=== PATIENT | female | born 1965 | race African-American/Black ===

== ENCOUNTER 2021-10-13 14:44 | Emergency (ER) | payer OTHER ==
[~2021-10-13] VITALS: Ht 170.2 cm; Wt 99.8 kg
[~2021-10-13 14:44] MED LIST: CARISOPRODOL 3350 MG PO; IBUPROFEN 800800 M1 PO; NAPROSYN500 MG PO; PREDNISONE 5 MG5 M1 PO
[2021-10-13 15:01] VITALS: BP 127/80
[2021-10-13] MEDS ORDERED: TESSALON PERLE100 MG PO ×2 (17:02→17:08)
[2021-10-13] MEDS ORDERED: PROAIR HFA8.5 GM INH ×2 (17:02→17:08)
[2021-10-13] MEDS ORDERED: ZPAK PO ×2 (17:02→17:08)
--- NOTE | 2021-10-13 20:21 | NUR ---
ATTEMPTED TO CALL PT RE COIVD + RESULT. LEFT MESSAGE AT [phone].
== END 2021-10-13 17:19 | disposition home or self-care (01) ==
LOC: ER 14:44
PROVIDERS: Student in an Organized Health Care Education/Training Program
DX: U07.1 COVID-19 (principal); J12.82 Pneumonia due to coronavirus disease 2019; E11.9 Type 2 diabetes mellitus without complications; Z90.710 Acquired absence of both cervix and uterus

== ENCOUNTER 2021-10-18 11:13 | Inpatient (IN) | payer OTHER ==
[~2021-10-18] VITALS: Ht 170.2 cm; Wt 95.3 kg
[2021-10-18 11:13] VITALS: BP 149/85
[~2021-10-18 11:13] MED LIST changes: +PROAIR HFA8.5 GM INH; +TESSALON PERLE100 MG PO; +ZPAK PO
[2021-10-18] MEDS ORDERED: METFORMIN HCL500 M3 PO (11:27)
[2021-10-18 11:51] LABS: ABSOLUTE NEUTROPHILS 5.7 thou/uL (1.4-8.2); EOSINOPHILS 0.2 % (0.0-3.0); HEMATOCRIT 48.7 % (37.0-47.0); HEMOGLOBIN 15.4 gm/dL (12.0-15.0); LYMPHOCYTES 7.7 % (24.0-44.0); MCH 21.5 pg (26.0-34.0); MCHC 31.6 g/dL (28.0-37.0); MCV 68.1 fL (80.0-100.0); MONOCYTES 9.2 % (1.0-8.0); PLATELET COUNT 314 thou/uL (150-400); POLYS 81.9 % (36.0-66.0); RDW 14.5 % (10.5-14.5)
[2021-10-18 11:52] LABS: RBC 7.14 mil/uL (4.20-5.00)
[2021-10-18 12:21] LABS: ALBUMIN 2.6 g/dL (3.4-5.0); CREATININE 1.1 mg/dL (0.6-1.0); POTASSIUM 3.4 mmol/L (3.5-5.1); TOTAL BILIRUBIN 0.6 mg/dL (0.2-1.0); TOTAL PROTEIN 8.5 g/dL (6.4-8.2)
[2021-10-18 12:54] LABS: ANISOCYTOSIS SLIGHT; BURR CELLS FEW; MICROCYTES 1+; POIKILOCYTOSIS SLIGHT
[2021-10-18 14:00] LABS: HCO3 14.7 mmol/L (22.0-26.0); pH 7.395 (7.360-7.450); sO2 94.8 % (92.0-98.0)
[2021-10-18 14:01] LABS: PCO2 24.6 mmHg (35.0-45.0)
--- NOTE | 2021-10-18 14:01 | EKG ---
[address] [address] ELECTROCARDIOGRAM REPORT Name: JACQUI SEN Room #: [facility]#: [id number] Admission: 10/18/21 Attend Phys: Discharge: Date of : 63 Report #: [id number] [facility] ED Test Date: 2021-10-18 Test Time: 11:26:09 Pat Name: JACQUI SEN Department: Room: Gender: F Napper Runner: RAJEEV : 1965 Requested By: Vita Russo Order Number: [id number] MD: Minh Borden Measurements Intervals [place] Rate: 133 P: 57 NE: 81 QRS: 14 QRSD: 84 T: -75 QT: 298 QTc: 444 Interpretive Statements Sinus tachycardia Probable left atrial enlargement Borderline repolarization abnormality Compared to ECG 02/25/2016 11:47:20 Sinus rhythm no longer present T-wave abnormality no longer present Electronically Signed On 10-18-2021 14:01:41 RENAL CASE MANAGER by Minh Borden [email or web address] <ELECTRONICALLY SIGNED> By: Minh Borden MD, [facility] 10/18/21 1401 1126 [id number] Minh Borden MD, FACC /EPI
[2021-10-19 08:01] LABS: BASOPHILS 0.4 % (0.0-2.0); EOSINOPHILS 0.3 % (0.0-3.0); HEMOGLOBIN 14.9 gm/dL (12.0-15.0); LYMPHOCYTES 10.3 % (24.0-44.0); MCH 21.8 pg (26.0-34.0); MCHC 32.4 g/dL (28.0-37.0); MCV 67.2 fL (80.0-100.0); MONOCYTES 8.8 % (1.0-8.0); POLYS 80.2 % (36.0-66.0); RBC 6.84 mil/uL (4.20-5.00); RDW 14.6 % (10.5-14.5); WBC 7.5 thou/uL (4.0-11.0)
[2021-10-19 08:47] LABS: ALBUMIN 2.6 g/dL (3.4-5.0); CALCIUM 10.2 mg/dL (8.5-10.1); PHOSPHORUS 2.9 mg/dL (2.5-4.9); POTASSIUM 3.1 mmol/L (3.5-5.1); TOTAL BILIRUBIN 0.4 mg/dL (0.2-1.0); TOTAL PROTEIN 8.3 g/dL (6.4-8.2)
[2021-10-19 09:28] LABS: INR 1.11
--- NOTE | 2021-10-19 11:16 | NUR ---
SPOKE TO DR. PABLO AND PATIENT DOWNGRADED TO MED SURG STATUS.
[2021-10-19 13:31] LABS: PLATELET COUNT 288 thou/uL (150-400)
[2021-10-19 14:34] VITALS: BP 141/72
--- NOTE | 2021-10-19 21:24 | HC ---
[facility] [place] [address] CONSULTATION Name: JACQUI SEN Room #: 170-12 ADM IN .R.#: [id number] Admission: 10/18/21 Attend Phys: Lyndsey Lazcano Discharge: Date of : 63 Report #: [id number] THIS REPORT FOR: cc: FAM - No family physician/PCP FAM - No family physician/PCP Kwame De León MD ~ DATE OF SERVICE: 10/18/2021 INFECTIOUS DISEASES CONSULTATION REASON FOR CONSULTATION: I was asked to evaluate concerning COVID-19 pneumonia. HISTORY OF PRESENT ILLNESS: The patient is a 56-year-old with underlying history of diabetes, unvaccinated for COVID-19, presents with 2-week history of headache, cough, congestion, shortness of breath, low-grade fever, myalgias, and arthralgias. Minimal GI discomfort. Blood sugars have been high, treated with a Z-Edy and Tessalon Perles prior to her admission. Presents now with hypoxia, now on high flow oxygen. CT scan showed no evidence of pulmonary embolus. REVIEW OF SYSTEMS: A 14-point review of system was negative other than what is described above. No history of previous pneumonia, tuberculosis, HIV, or hepatitis. PAST MEDICAL HISTORY: 1. Hysterectomy 2. Diabetes. FAMILY HISTORY: Hypertension. SOCIAL HISTORY: Nonsmoker. No significant alcohol intake. Works for the school district. ALLERGIES: None known. MEDICATIONS: As noted on her MAR. PHYSICAL EXAMINATION: GENERAL: She was afebrile and hemodynamically stable. Alert and cooperative on high flow oxygen per nasal cannula. SKIN: Without rash or decubitus. No palpable adenopathy. She was of normal weight. HEENT: Eyes without scleral icterus. Mouth without mucositis. NECK: Supple. LUNGS: Coarse breath sounds posteriorly. HEART: Regular, without murmur, gallop or rub. ABDOMEN: Soft and nontender with no hepatosplenomegaly or mass. [facility] [address] [place] [address] CONSULTATION Name: JACQUI SEN Room #: [address] [place] [address] [place] [facility]#: [id number] Admission: 10/18/21 Attend Phys: Lyndsey Lazcano Discharge: Date of : 63 Report #: [id number] GENITORECTAL: Not performed. SPINE: Nontender. No CVA tenderness. EXTREMITIES: Without clubbing, cyanosis, or edema. NEUROLOGIC: Cranial nerves intact. Strength in the upper and lower extremities was symmetric and within normal limits. PSYCHIATRIC: Mood without anxiety. LABORATORY DATA: Reviewed. MICROBIOLOGY: Reviewed. IMAGING: Chest x-ray reviewed. CT scan of the chest reviewed. IMPRESSION: 1. COVID-19 pneumonia due to SARS-CoV-2. 2. Respiratory failure. 3. Underlying diabetes. RECOMMENDATION: We will continue with antiviral and anti-inflammatory program. Due to her high flow oxygen needs, we will add IL-6 inhibitor. Risks and benefit were discussed with the patient, who agreed with plan of care. We will continue with antibiotics pending culture results. Check serial laboratory studies and chest x-ray. The patient will be maintained in [facility] isolation unit for cardiopulmonary monitoring. <ELECTRONICALLY SIGNED> By: Kwame De León MD 10/19/214 [id number] Kwame De León MD /nt
[2021-10-19 21:55] VITALS: BP 121/78
[2021-10-20 06:31] LABS: ABSOLUTE NEUTROPHILS 7.3 thou/uL (1.4-8.2); BASOPHILS 0.4 % (0.0-2.0); EOSINOPHILS 0.3 % (0.0-3.0); HEMATOCRIT 48.2 % (37.0-47.0); HEMOGLOBIN 15.5 gm/dL (12.0-15.0); LYMPHOCYTES 8.1 % (24.0-44.0); MCH 21.7 pg (26.0-34.0); MCHC 32.2 g/dL (28.0-37.0); MCV 67.3 fL (80.0-100.0); MONOCYTES 6.7 % (1.0-8.0); PLATELET COUNT 308 thou/uL (150-400); POLYS 84.5 % (36.0-66.0); RDW 14.2 % (10.5-14.5); WBC 8.7 thou/uL (4.0-11.0)
[2021-10-20 06:39] LABS: RBC 7.16 mil/uL (4.20-5.00)
[2021-10-20 06:48] LABS: CALCIUM 10.5 mg/dL (8.5-10.1); POTASSIUM 3.1 mmol/L (3.5-5.1)
[2021-10-20 06:54] LABS: ALBUMIN 2.8 g/dL (3.4-5.0); DIRECT BILIRUBIN 0.1 mg/dL (<0.1-0.2); PHOSPHORUS 2.8 mg/dL (2.5-4.9); TOTAL BILIRUBIN 0.5 mg/dL (0.2-1.0); TOTAL PROTEIN 8.5 g/dL (6.4-8.2)
[2021-10-20 07:12] LABS: HIV ANTIBODY Non Reactive (Non Reactive)
--- NOTE | 2021-10-20 07:42 | EKG ---
[address] [place] [address] ELECTROCARDIOGRAM REPORT Name: JACQUI SEN Room #: 170- ADM IN M.R.#: [id number] Admission: 10/18/21 Attend Phys: Lyndsey Lazcano Discharge: Date of : 63 Report #: [id number] [facility] ED Test Date: 2021-10-19 Test Time: 12:38:17 Pat Name: JACQUI SEN Department: Room: 170 12 Gender: F Group Controller: HANH : 1965 Requested By: Lyndsey Lazcano Order Number: [id number] MD: Minh Borden Measurements Intervals [place] Rate: 117 P: 110 [place]: 112 QRS: 171 QRSD: 81 T: QT: 447 QTc: 624 Interpretive Statements Right and left arm electrode reversal, interpretation assumes no reversal Sinus tachycardia Probable left atrial enlargement Lateral leads are also involved Prolonged QT interval Compared to ECG 10/18/2021 11:26:09 Prolonged QT interval now present Electronically Signed On 10-20-2021 7:42:09 COLOR MAKER DYER by Minh Borden [email or web address] <ELECTRONICALLY SIGNED> By: Minh Borden MD, [facility] 10/20/21 0742 1238 1238 Minh Borden MD, [facility] /EPI
[2021-10-20 17:40] VITALS: BP 139/78
[2021-10-20 18:36] VITALS: BP 131/82
--- NOTE | 2021-10-20 19:22 | NUR ---
PATIENT ADMIT TO UNIT AT 1815 FROM ER. A/O X4. ON OPTIFLOW 40L/70%. VSS. WILL KEEP MONIOR.
[2021-10-20 19:45] VITALS: BP 128/79
--- NOTE | 2021-10-21 04:17 | NUR ---
ASSUMED CARE OF PT AROUND 1900. VVS. PT HAS REMAINED MODERATELY INDEPENDENT AND IS ABLE TO REPOSITION SELF IN BED WITHOUT CONCERN. PT HAS REMAINED ON OPTI FLOW SATING 95% AND ABOVE. PT ENDORCES GENERALIZED BODY ACHES AND A COUGH BU NO OTHER CONCERNS. VVS. NO ACUTE MEDICAL EVENTS. WILL CONT. TO MONITOR AND FOLLOW PLAN OF CARE PT IS WILLING
[2021-10-21 05:00] VITALS: BP 112/74
[2021-10-21 08:09] LABS: ABSOLUTE NEUTROPHILS 8.2 thou/uL (1.4-8.2); BASOPHILS 0.1 % (0.0-2.0); EOSINOPHILS 0.4 % (0.0-3.0); HEMATOCRIT 46.3 % (37.0-47.0); HEMOGLOBIN 14.8 gm/dL (12.0-15.0); LYMPHOCYTES 7.7 % (24.0-44.0); MCH 21.5 pg (26.0-34.0); MCHC 31.9 g/dL (28.0-37.0); MCV 67.3 fL (80.0-100.0); MONOCYTES 8.7 % (1.0-8.0); POLYS 83.1 % (36.0-66.0); RBC 6.88 mil/uL (4.20-5.00); RDW 14.4 % (10.5-14.5); WBC 9.9 thou/uL (4.0-11.0)
[2021-10-21 08:18] VITALS: BP 111/72
[2021-10-21 08:23] LABS: ALBUMIN 2.7 g/dL (3.4-5.0); CALCIUM 10.7 mg/dL (8.5-10.1); CREATININE 0.8 mg/dL (0.6-1.0); DIRECT BILIRUBIN 0.1 mg/dL (<0.1-0.2); PHOSPHORUS 2.4 mg/dL (2.5-4.9); TOTAL BILIRUBIN 0.4 mg/dL (0.2-1.0); TOTAL PROTEIN 7.8 g/dL (6.4-8.2)
[2021-10-21 08:28] LABS: POTASSIUM 2.6 mmol/L (3.5-5.1)
[2021-10-21 10:04] LABS: PLATELET COUNT 306 thou/uL (150-400)
[2021-10-21 10:05] LABS: ANISOCYTOSIS 1+; MICROCYTES 2+; PLATELET ESTIMATE NORMAL
[2021-10-21 16:43] VITALS: BP 126/54
--- NOTE | 2021-10-21 16:44 | NUR ---
ASSUMED PT CARE THIS AM. PT IS ALERT & ORIENTED X4. PT HAS IV SITE ON RAC SALINE LOCKED. INFORMED HOSPITALIST ABOUT CRITICAL K WAS LOW THIS AM AND INFUSED KCL. PT IS ACCUCHECK ACHS. PT HAS PUREWICK EXTERNAL CATH IN PLACE. PT TOLERATED DIET AND MEDICATION WELL. WILL CONTINUE TO MONITOR PT. FOLLOW POC.
[2021-10-21 20:00] VITALS: BP 133/58
[2021-10-22 04:38] VITALS: BP 119/68
[2021-10-22 05:04] LABS: HEMATOCRIT 43.4 % (37.0-47.0); HEMOGLOBIN 13.8 gm/dL (12.0-15.0); MCH 21.5 pg (26.0-34.0); MCHC 31.8 g/dL (28.0-37.0); MCV 67.5 fL (80.0-100.0); RBC 6.43 mil/uL (4.20-5.00); RDW 14.2 % (10.5-14.5); WBC 11.5 thou/uL (4.0-11.0)
[2021-10-22 05:25] LABS: ALBUMIN 2.6 g/dL (3.4-5.0); CALCIUM 9.8 mg/dL (8.5-10.1); CREATININE 0.8 mg/dL (0.6-1.0); DIRECT BILIRUBIN 0.1 mg/dL (<0.1-0.2); PHOSPHORUS 2.9 mg/dL (2.6-4.7); TOTAL BILIRUBIN 0.4 mg/dL (0.2-1.0)
[2021-10-22 05:29] LABS: POTASSIUM 2.6 mmol/L (3.5-5.1)
--- NOTE | 2021-10-22 05:34 | NUR ---
[place] FROM LAB CALLED CRITICAL K+ OF 2.6. SPOKE TO SUPERVISOR CONCRETE STONE FABRICATING AND RECEIVED ORDERS FOR REPLACEMENT 40MG PO AND 20MG IVPB.
[2021-10-22 06:51] VITALS: BP 114/67
--- NOTE | 2021-10-22 06:56 | NUR ---
ASSUMED CARE AT 1900, PT LAYING COMFORTABLY IN BED, REPORTS NO PAIN OR DISCOMFORT, COMPLIANT TO TX, NO ADVERSE REACTION NOTED, LOW POTASSIUM INDICATED, NEW ORDER IN PLACE, SLEPT THROUGHTHE NIGHT, PT NOTIFIED, CALL LIGHT WITHIN REACH WILL CONTINUE TO MINITOR.
[2021-10-22 07:11] LABS: ABSOLUTE NEUTROPHILS 8.7 thou/uL (1.4-8.2); HYPOCHROMASIA 2+
[2021-10-22 07:12] LABS: ANISOCYTOSIS 1+; MICROCYTES 2+; POLYCHROMASIA 1+
[2021-10-22 07:16] LABS: PLATELET COUNT 340 thou/uL (150-400)
[2021-10-22 15:05] VITALS: BP 100/68
--- NOTE | 2021-10-22 18:31 | NUR ---
RN ASSUMED PT'S CARE AT 0700AM, PT IS A&OX4, PT IS OFF OPTIFLOW AND PT IS ON O2 6L/MIN/NC, PT'S O2SAT STAY AT 93-98% PT'S VS ARE STABLE AT DAY SHIFT, PT GETS UP TO CHAIR WITH ASSIST, PT DENIES PAIN AND SOB BY THIS TIME.
[2021-10-22 19:08] VITALS: BP 104/67
[2021-10-23 03:47] VITALS: BP 108/73
[2021-10-23 06:54] LABS: ABSOLUTE NEUTROPHILS 8.5 thou/uL (1.4-8.2); BASOPHILS 0.4 % (0.0-2.0); EOSINOPHILS 0.7 % (0.0-3.0); HEMOGLOBIN 13.5 gm/dL (12.0-15.0); LYMPHOCYTES 18.7 % (24.0-44.0); MCH 21.3 pg (26.0-34.0); MCHC 31.5 g/dL (28.0-37.0); MCV 67.5 fL (80.0-100.0); PLATELET COUNT 321 thou/uL (150-400); POLYS 70.2 % (36.0-66.0); RBC 6.37 mil/uL (4.20-5.00); RDW 14.3 % (10.5-14.5); WBC 12.1 thou/uL (4.0-11.0)
[2021-10-23 07:15] LABS: ALBUMIN 2.7 g/dL (3.4-5.0); CALCIUM 9.6 mg/dL (8.5-10.1); CREATININE 0.7 mg/dL (0.6-1.0); DIRECT BILIRUBIN 0.1 mg/dL (<0.1-0.2); PHOSPHORUS 3.5 mg/dL (2.6-4.7); TOTAL BILIRUBIN 0.4 mg/dL (0.2-1.0)
[2021-10-23 07:20] LABS: POTASSIUM 2.7 mmol/L (3.5-5.1)
[2021-10-23 07:28] VITALS: BP 143/89
--- NOTE | 2021-10-23 07:47 | NUR ---
Up in the chair till HS then back to bed. She stated she slept well during the night. O2 at 6L at beginning of shift the titrated down to 5L. Maintaining O2 sat in the mid 90's. Denies being short of breath with exertion. Making some progress towards care plan goals.
[2021-10-23 08:50] LABS: HYPOCHROMASIA 1+; MICROCYTES 1+
[2021-10-23 15:18] VITALS: BP 112/72
--- NOTE | 2021-10-23 16:48 | NUR ---
RN ASSUMED PT'S CARE AT 0700AM, PT IS A&OX4, PT IS ON O2 5L/MIN/NC, PT'S VS AND O2SAT ARE STABLE BY THIS TIME, PT GETS UP TO CHAIR WITHOUT ASSIST, BUT PT STILL HAS SOME COUGHING, PT DENIES SOB WITH ACTIVITIES, PT DENIES PAIN BY THIS TIME.
[2021-10-23 19:46] VITALS: BP 112/62
--- NOTE | 2021-10-24 00:33 | NUR ---
PT PROGRESSING TOWARDS D/C GOALS. VSS AFEBRILE SATS 98% ON 5LNC. DENIED PAIN OR SOA. HS SNACK GIVEN AFTER INSULIN GIVEN PER PT REQUEST. WILL CONTINUE TO MONITOR PT FOR CHANGES.
[2021-10-24 02:58] VITALS: BP 124/80
[2021-10-24 05:33] LABS: ABSOLUTE NEUTROPHILS 9.9 thou/uL (1.4-8.2); BASOPHILS 0.6 % (0.0-2.0); EOSINOPHILS 0.5 % (0.0-3.0); HEMATOCRIT 42.5 % (37.0-47.0); HEMOGLOBIN 13.5 gm/dL (12.0-15.0); LYMPHOCYTES 16.6 % (24.0-44.0); MCH 21.5 pg (26.0-34.0); MCHC 31.8 g/dL (28.0-37.0); MCV 67.6 fL (80.0-100.0); MONOCYTES 7.6 % (1.0-8.0); PLATELET COUNT 330 thou/uL (150-400); POLYS 74.7 % (36.0-66.0); RBC 6.29 mil/uL (4.20-5.00); RDW 14.3 % (10.5-14.5); WBC 13.2 thou/uL (4.0-11.0)
[2021-10-24 06:01] LABS: ALBUMIN 2.7 g/dL (3.4-5.0); CALCIUM 9.6 mg/dL (8.5-10.1); CREATININE 0.8 mg/dL (0.6-1.0); DIRECT BILIRUBIN 0.1 mg/dL (<0.1-0.2); MAGNESIUM 1.6 mg/dL (1.8-2.4); PHOSPHORUS 3.2 mg/dL (2.6-4.7); POTASSIUM 3.6 mmol/L (3.5-5.1); TOTAL BILIRUBIN 0.3 mg/dL (0.2-1.0)
--- NOTE | 2021-10-24 06:11 | NUR ---
PT PROGRESSING TOWARDS D/C GOALS. VSS AFEBRILE THIS AM. DENIED SOA ON 5LNC.
[2021-10-24 08:01] VITALS: BP 109/68
[2021-10-24 15:17] VITALS: BP 122/73
--- NOTE | 2021-10-24 16:06 | NUR ---
INITIAL ASSESSMENT: RENETTA reviewed chart and spoke with nursing and attending physician. Pt was admitted from home due to COVID. Pt placed in Enhanced Isolation. Pt has not received a COVID vaccination. Pt is afebrile and on 4-5L of O2 at rest. Pt is on IV steroids. Pt is progressing towards goals for discharge. Pt will d/c home when O2 requirements are lower. RENETTA spoke with pt via phone. Introduced role of SW. Pt is alert/orientated x 4. Pt reports she lives at home alone. Prior to admission, pt was independent with ADLs. No use of DME. No hx of HH services or post-acute placement. Pt's PCP is Dr. Vita Quintanilla. SW discussed possible need for Home O2 and/or HH. Pt verbalized understanding and is agreeable. SW provided options for HH and Home O2. No preference voiced. RENETTA notified [facility] liaison of new referral. RENETTA faxed home O2 referral to [facility] for review. Will need rest/exercise oximetry ordered prior to discharge. RENETTA is following to assist as needed with discharge planning.
--- NOTE | 2021-10-24 19:47 | NUR ---
RN ASSIUMED PT'S CARE AT 0700-1900PM, PT IS A&OX4, PT IS ON O2 4L/MIN/NC, PT'S O2SAT AND VS ARE STABLE, PT GETS UP TO BSC WITHOUT ASSIST, PT DENIES PAIN AND SOB AT DAY SHIFT.
[2021-10-24 20:17] VITALS: BP 112/67
--- NOTE | 2021-10-25 03:39 | NUR ---
Up in the chair till HS. O2 at 5L/NC and maintaining O2 sat in the mid 90's. Cont. on enhanced precaution , afebrile. Slept fair during the night. Making some progress towards care plan goals.
[2021-10-25 03:55] VITALS: BP 126/82
[2021-10-25 05:07] LABS: ALBUMIN 2.7 g/dL (3.4-5.0); CALCIUM 9.6 mg/dL (8.5-10.1); CREATININE 0.7 mg/dL (0.6-1.0); PHOSPHORUS 3.2 mg/dL (2.5-4.9)
[2021-10-25 05:17] LABS: POTASSIUM 4.7 mmol/L (3.5-5.1)
[2021-10-25] MEDS ORDERED: SPIRIVA RESPIMAT4 G1 INH (06:30)
[2021-10-25] MEDS ORDERED: WIXELA 500-501 EACH INH (06:31)
[2021-10-25 07:49] VITALS: BP 97/68
--- NOTE | 2021-10-25 14:32 | NUR ---
RENETTA reviewed chart and spoke with nursing and attending physician. Pt remains in Enhanced Isolation due to COVID. Pt is afebrile and on 4L of O2. Pt is on IV steroids and IV lasix. Pt is progressing towards goals for discharge. Plan is for pt to discharge home and/or Home O2. [facility] is able to accept pt on service pending insurance verification. [facility] is able to provide home O2. Will need rest/exercise oximetry ordered to determine home O2 needs. RENETTA is following to assist as needed with discharge planning.
[2021-10-25 15:45] VITALS: BP 103/66
--- NOTE | 2021-10-25 18:54 | NUR ---
RN ASSUMED PT'S CARE AT 0700AM, PT IS A&OX4, PT IS ON O2 4L/MIN, PT'S VS AND O2SAT ARE STABLE AT MOST OF TIME, PT'S HR IS FAST AT 120-140 WHEN PT HAS ACTIVITIES ( WITH PT OR OT ) , PT GETS UP TO CHAIR AND BATH ROOM WITHOUT ASSIST.
[2021-10-25 20:24] VITALS: BP 108/69
[2021-10-26 03:45] VITALS: BP 130/73
--- NOTE | 2021-10-26 04:59 | NUR ---
O2 at 3L at beginning of shift with o2 sat in the upper 90's. O2 titrated down to 2L/ this am with O2 sat in the mid to upper 90's. Denies being short of breath with exertion although tachycardic per tele. Up ad ada in room with steady gait. Cont. on enhanced precaution , afebrile. Progressing towards care plan goals.
[2021-10-26 07:51] VITALS: BP 127/76
--- NOTE | 2021-10-26 09:18 | NUR ---
Nutrition: pt admitted with COVID + status to [facility]. Assessed due to LOS. Spoke with pt over the phone. Eating well, 75-100% of meals per records on carb controlled diet. Hx DM with hyperglycemia present likely aggravated by need for steroids. Pt voices no questions related to diet. Stable weights. BMI 32-obesity class 1. 1/3 BM. Plan D/C when O2 requirements are lower. Low nutrition risk.
[2021-10-26] MEDS ORDERED: DECADRON6 MG PO (11:04)
[2021-10-26] MEDS ORDERED: LEVOFLOXACIN500 MG PO (11:04)
[2021-10-26] MEDS ORDERED: ASA81BEC PO (11:04)
[2021-10-26 13:32] VITALS: BP 127/76
[2021-10-26] MEDS ORDERED: OXYGEN MISCELL (14:09)
--- NOTE | 2021-10-26 14:14 | NUR ---
DISCHARGE NOTE: RENETTA reviewed chart and spoke with nursing and attending physician. Pt remains in Enhanced Isolation due to COVID. Pt is afebrile and is medically stable to discharge home today. Rest/exercise oximetry completed. Pt need 2L of O2 with activity. RENETTA updated attending physician for script for O2. Script obtained from [facility]. RENETTA faxed testing and script to [facility]. Notified [facility] liaison. Portable O2 tank to be delivered. RENETTA placed call to pt's room. No answer. RENETTA left voice message on listed cell phone number: [phone]. Requested call back to discuss discharge and possible HH services. RENETTA updated pt's nurse. Requested nursing to assist with pt calling SW. RENETTA is following to finalize discharge plan.
[2021-10-26 16:07] VITALS: BP 121/71
--- NOTE | 2021-10-26 16:19 | NUR ---
RN ASSUMED PT'S CARE AT 0700AM, PT IS A&OX4, PT IS ON O2 2L/MIN/NC , PT'S O2SAT AND VS ARE STABLE, PT'S SOB AND WEAKNESS HAVE IMPROVED, PT GOES TO BATH ROOM WITHOUT ASSIST, PT DENIES PAIN AND COUGHING , RN RECEIVED ORDER TO DC PT TO HOME WITH HOME HEALTH.
--- NOTE | 2021-10-26 16:52 | NUR ---
PT UNDERSTANDS DC TEACHING WELL , INCLUDING NEW MEDICATIONS, COVID ISOLATION , WHEN NEED TO CALL DR AND HOME HEALTH SERVICE IMFORMATION, PT'S FAMILY PHARMACOLOGY TEACHER PT TO HOME AT 1645PM.
[2021-10-29 07:20] LABS: T-SPOT.TB Negative
== END 2021-10-26 17:02 | disposition home health service (06) | DRG 177 ==
LOC: ER 11:13 → 3W 13:46 → EROBS 13:46 → ER 14:30 → EROBS 14:30 → 3W 10-20 18:04
PROVIDERS: Emergency Medicine; Nurse Practitioner Family; Specialist; ADMIT Hospitalist; ATTEND Hospitalist
PROC: XW033E5 Introduction of Remdesivir Anti-infective into Peripheral Vein, Percutaneous Approach, New Technology Group 5 (ICD-10-PCS; principal; 2021-10-18)
PROC: 5A0945A Assistance with Respiratory Ventilation, 24-96 Consecutive Hours, High Flow/Velocity Cannula (ICD-10-PCS; 2021-10-19)
PROC: 5A0935A Assistance with Respiratory Ventilation, Less than 24 Consecutive Hours, High Flow/Velocity Cannula (ICD-10-PCS; 2021-10-22)
DX: U07.1 COVID-19 (principal); J12.82 Pneumonia due to coronavirus disease 2019; J96.01 Acute respiratory failure with hypoxia; E11.65 Type 2 diabetes mellitus with hyperglycemia; E87.6 Hypokalemia; R53.81 Other malaise; Z60.2 Problems related to living alone; Z90.710 Acquired absence of both cervix and uterus; Z82.49 Family history of ischemic heart disease and other diseases of the circulatory system; Z79.899 Other long term (current) drug therapy; Z79.82 Long term (current) use of aspirin
CPT/HCPCS: 10080; 10879